=== PATIENT | female | born 1975 | race Caucasian/White ===

== ENCOUNTER 2017-04-17 23:00 | Emergency (ER) | payer MEDICAID, OTHER ==
[~2017-04-17 23:00] MED LIST: CLON1 PO; LITH300 PO; PROZ40CA PO; TOPA200T4 PO; VIMP200T PO
[2017-04-17 23:25] LABS: AUTOMATED NEUTROPHIL # 6.1 TH/MM3 (1.8-7.7); BASOPHIL # 0.1 TH/MM3 (0-0.2); BASOPHIL % 0.6 % (0.0-2.0); EOSINOPHIL # 0.1 TH/MM3 (0-0.4); HEMATOCRIT 36.6 % (35.0-46.0); HEMO FLAGS DIFF FINAL; LYMPHOCYTE # 3.2 TH/MM3 (1.0-4.8); MEAN CELL VOLUME 86.9 FL (80.0-100.0); MEAN CORPUSCULAR HEMOGLOBIN 28.6 PG (27.0-34.0); MEAN CORPUSCULAR HGB CONC 32.9 % (32.0-36.0); MONO % 6.1 % (0.0-8.0); NEUT % 60.3 % (16.0-70.0); PLATELET COUNT 285 TH/MM3 (150-450); RED BLOOD COUNT 4.21 MIL/MM3 (4.00-5.30); RED CELL DISTRIBUTION WIDTH 14.6 % (11.6-17.2); WHITE BLOOD COUNT 10.1 TH/MM3 (4.0-11.0)
[2017-04-17 23:39] LABS: ALT (GPT) 16 U/L (10-53); ANION GAP 6 MEQ/L (5-15); AST (GOT) 15 U/L (15-37); BICARBONATE 22.7 MEQ/L (21.0-32.0); BLOOD UREA NITROGEN 9 MG/DL (7-18); CHLORIDE 115 MEQ/L (98-107); GLOMERULAR FILTRATION RATE 90 ML/MIN (>89); POTASSIUM 3.7 MEQ/L (3.5-5.1); SODIUM (NA) 144 MEQ/L (136-145)
[2017-04-17 23:42] LABS: ALKALINE PHOSPHATASE 92 U/L (45-117); TOTAL BILIRUBIN ADULT LESS THAN 0.1 MG/DL (0.2-1.0)
--- NOTE | 2017-04-18 00:12 | PD ---
HPI Chief Complaint: Psychiatric Symptoms Time Seen by Provider: 00:01 Travel History International Travel<30 days: No Contact w/Intl Traveler<30days: No Traveled to known affect area: No History of Present Illness HPI 41-year-old female presents to emergency department under Andrade act by PD. The patient performed suicide gesture cutting to her left forearm. The patient states that she has a history of anxiety, depression, bipolar, migraines , and seizure disorder. She had gotten upset with her daughter earlier today. She also had gotten into a argument with a friend of hers. She had gone home and perform self belated cutting. The patient admits to feeling depressed and having suicidal thoughts. She denies any homicidal ideation. No toxic ingestions. She missed to drinking alcohol. She also smokes marijuana. Denies . Denies any acute medical complaints otherwise. No recent illness. PFSH Past Medical History Narrative Medical Anxiety, depression, bipolar, migraines, seizure disorder Bipolar Disorder: Yes Anxiety: Yes Depression: Yes Psychiatric: Yes Immunizations Current: Yes Tetanus Vaccination: < 5 Years Tubal Ligation: Yes Past Surgical History Narrative Surgical Tube ligation Social History Alcohol Use: Yes Tobacco Use: Yes Substance Use: Yes (marijuana) Allergies-Medications (Allergen,Severity, Reaction): Coded Allergies: Benadryl (Unverified Allergy, Mild, 04/29/16) Penicillin (Verified Allergy, Unknown, 04/29/16) Reported Meds & Prescriptions Reported Meds & Active Scripts Active Reported [place] Carbonate 300 Mg Tab 300 Mg PO DAILY Klonopin (Clonazepam) 1 Mg Tab 1 Mg PO TID Prozac (Fluoxetine HCl) 40 Mg Cap 40 Mg PO DAILY Topamax (Topiramate) 200 Mg Tab 200 Mg PO BID Vimpat (Lacosamide) 200 Mg Tab 200 Mg PO BID Review of Systems Except as stated in HPI: all other systems reviewed are Neg General / Constitutional: No: Fever, Chills Eyes: No: Diploplia, Blurred Vision HENT: No: Lightheadedness, Sore Throat Cardiovascular: No: Chest Pain or Discomfort, Tachycardia Respiratory: No: Cough, Shortness of Breath Gastrointestinal: No: Nausea, Vomiting Genitourinary: No: Dysuria, Hematuria Musculoskeletal: No: Myalgias, Arthralgias Skin: No Rash, No Lumps Neurologic: No: Focal Abnormalities, Paresthesia Psychiatric: Positive: Depression, Suicidal Ideations, Mood Disorder, Substance Abuse, No: Anxiety, Disorder of Thought, Homicidal Ideation Physical Exam Narrative GENERAL: Well-nourished, well-developed patient. SKIN: Warm and dry. Patient has superficial linear cut to the left forearm. This is nonsuturable. HEAD: Normocephalic and atraumatic. EYES: No scleral icterus. No injection or drainage. ENT: No nasal drainage noted. Mucous membranes pink. Airway patent. NECK: Supple, trachea midline. Moves head freely without obvious discomfort. CARDIOVASCULAR: Regular rate and rhythm without murmurs, gallops, or rubs. RESPIRATORY: Breath sounds equal bilaterally. No accessory muscle use. GASTROINTESTINAL: Abdomen soft, non-tender, nondistended. EXTREMITIES: No cyanosis or edema. BACK: Nontender without obvious deformity. No CVA tenderness. NEURO: Patient is alert and oriented. no sensorimotor deficits. Nonfocal. Normal speech. PSYCH: No delusions. No auditory or visual hallucinations. Data Data Orders Complete Blood Count With Diff (04/17/17 23:16) Comprehensive Metabolic Panel (04/17/17 23:16) Urinalysis - C+S If Indicated (04/17/17 23:16) Drug Screen, Random Urine (04/17/17 23:16) Ed Urine Pregnancytest Poc (04/17/17 23:38) Alcohol (Ethanol) (04/17/17 23:38) Salicylates (Aspirin) (04/17/17 23:38) Tylenol (Acetaminophen) (04/17/17 23:38) [place] (Li) (04/17/17 23:48) Labs Laboratory Tests Test 04/17/17 04/18/17 23:15 00:02 White Blood Count 10.1 TH/MM3 Red Blood Count 4.21 MIL/MM3 Hemoglobin 12.0 GM/DL Hematocrit 36.6 % Mean Corpuscular Volume 86.9 FL Mean Corpuscular Hemoglobin 28.6 PG Mean Corpuscular Hemoglobin 32.9 % Concent Red Cell Distribution Width 14.6 % Platelet Count 285 TH/MM3 Mean Platelet Volume 7.8 FL Neutrophils (%) (Auto) 60.3 % Lymphocytes (%) (Auto) 32.0 % Monocytes (%) (Auto) 6.1 % Eosinophils (%) (Auto) 1.0 % Basophils (%) (Auto) 0.6 % Neutrophils # (Auto) 6.1 TH/MM3 Lymphocytes # (Auto) 3.2 TH/MM3 Monocytes # (Auto) 0.6 TH/MM3 Eosinophils # (Auto) 0.1 TH/MM3 Basophils # (Auto) 0.1 TH/MM3 CBC Comment DIFF FINAL Differential Comment Sodium Level 144 MEQ/L Potassium Level 3.7 MEQ/L Chloride Level 115 MEQ/L Carbon Dioxide Level 22.7 MEQ/L Anion Gap 6 MEQ/L Blood Urea Nitrogen 9 MG/DL Creatinine 0.71 MG/DL Estimat Glomerular Filtration 90 ML/MIN Rate Random Glucose 90 MG/DL Calcium Level 8.0 MG/DL Total Bilirubin LESS THAN 0.1 MG/DL Aspartate Amino Transf 15 U/L (AST/SGOT) Alanine Aminotransferase 16 U/L (ALT/SGPT) Alkaline Phosphatase 92 U/L Total Protein 7.7 GM/DL Albumin 3.2 GM/DL Salicylates Level LESS THAN 1.7 MG/DL Acetaminophen Level LESS THAN 2.0 MCG/ML [place] Level 0.2 MEQ/L Ethyl Alcohol Level 104 MG/DL [facility] Medical Decision Making Medical Screen Exam Complete: Yes Emergency Medical Condition: Yes Medical Record Reviewed: Yes Interpretation(s) Laboratory Tests Test 04/17/17 04/18/17 23:15 00:02 White Blood Count 10.1 TH/MM3 Red Blood Count 4.21 MIL/MM3 Hemoglobin 12.0 GM/DL Hematocrit 36.6 % Mean Corpuscular Volume 86.9 FL Mean Corpuscular Hemoglobin 28.6 PG Mean Corpuscular Hemoglobin 32.9 % Concent Red Cell Distribution Width 14.6 % Platelet Count 285 TH/MM3 Mean Platelet Volume 7.8 FL Neutrophils (%) (Auto) 60.3 % Lymphocytes (%) (Auto) 32.0 % Monocytes (%) (Auto) 6.1 % Eosinophils (%) (Auto) 1.0 % Basophils (%) (Auto) 0.6 % Neutrophils # (Auto) 6.1 TH/MM3 Lymphocytes # (Auto) 3.2 TH/MM3 Monocytes # (Auto) 0.6 TH/MM3 Eosinophils # (Auto) 0.1 TH/MM3 Basophils # (Auto) 0.1 TH/MM3 CBC Comment DIFF FINAL Differential Comment Sodium Level 144 MEQ/L Potassium Level 3.7 MEQ/L Chloride Level 115 MEQ/L Carbon Dioxide Level 22.7 MEQ/L Anion Gap 6 MEQ/L Blood Urea Nitrogen 9 MG/DL Creatinine 0.71 MG/DL Estimat Glomerular Filtration 90 ML/MIN Rate Random Glucose 90 MG/DL Calcium Level 8.0 MG/DL Total Bilirubin LESS THAN 0.1 MG/DL Aspartate Amino Transf 15 U/L (AST/SGOT) Alanine Aminotransferase 16 U/L (ALT/SGPT) Alkaline Phosphatase 92 U/L Total Protein 7.7 GM/DL Albumin 3.2 GM/DL Salicylates Level LESS THAN 1.7 MG/DL Acetaminophen Level LESS THAN 2.0 MCG/ML [place] Level 0.2 MEQ/L Ethyl Alcohol Level 104 MG/DL Differential Diagnosis MDM: High Differential diagnoses: Schizophrenia, schizoaffective disorder, bipolar, anxiety, depression, adjustment reaction, mood disorder NOS, ODD, depressive disorder NOS, dementia, dementia with agitation, psychosis NOS, substance induced mood disorder, intermittent explosive disorder, Asperger syndrome, infection,electrolyte abnormality, malingering. Narrative Course Mental health screening discussed with the patient. Psychiatric screen ordered. The patient been medically cleared. This is medical clearance exam for psychiatric admission, bipolar, self mutilation, alcohol intoxication Diagnosis Primary Impression: Medical clearance for psychiatric admission Additional Impressions: bipolar Self-mutilation alcohol intoxication Condition: Stable Tariq Goldstein Apr 18, 2017 00:12
[2017-04-18 00:47] LABS: ACETAMINOPHEN LESS THAN 2.0 MCG/ML (10.0-30.0)
[2017-04-18 00:53] LABS: BLOOD, URINE NEG (NEG); COMMENT (UR) CULT NOT INDICATED; CULTURE IF INDICATED CULT NOT INDICATED; GLUCOSE,URINE NEG (NEG); KETONE, URINE NEG (NEG); NITRITE,URINE NEG (NEG); PH, URINE 5.5 (5.0-8.5); SQUAMOUS EPITHELIAL CELL URINE 2 /hpf (0-5); URINE COLOR LIGHT-YELLOW (YELLW/STRAW)
[2017-04-18 00:55] LABS: AMPHETAMINE, URINE NEG (NEG); BARBITURATES, URINE POS (NEG); COCAINE, URINE NEG (NEG)
[2017-04-18] MEDS ORDERED: LITH300T3 PO (01:05)
[2017-04-18] MEDS ORDERED: CLON1 PO (01:05)
[2017-04-18] MEDS ORDERED: VIMP200T PO (01:05)
[2017-04-18] MEDS ORDERED: TOPI200 PO (01:05)
[2017-04-18] MEDS ORDERED: KEPP10002 PO (01:05)
[2017-04-18 01:08] VITALS: BP 116/64; PULSE 84; RESP 18; TEMP 98.4; O2SAT 96
[2017-04-18] MEDS ORDERED: LACOSAMIDE 100 MG TAB PO ONE (03:30)
[2017-04-18] MEDS ORDERED: levETIRAcetam 500 MG TAB PO ONE (03:30)
[2017-04-18] MEDS ORDERED: LITHIUM CARBONATE 300 MG TAB PO ONE (03:30)
[2017-04-18] MEDS ORDERED: TOPIRAMATE 100 MG TAB PO ONE (03:30)
[2017-04-18 07:31] VITALS: BP 158/79; PULSE 69; RESP 18; O2SAT 100
--- NOTE | 2017-04-18 10:24 | PD ---
History of Present Illness Chief Complaint: Psychiatric Symptoms Time Seen by Provider: 10:05 Travel History International Travel<30 Days: No Contact w/Intl Traveler<30days: No Known affected area: No Legal Status Legal Status: Andrade Act Andrade Act Signed By: Lito Avitia History of Present Illness: History of Present Illness HPI 41-year-old female with hx of bipolar disorder as well as alcohol use disorder who presents to emergency department under Andrade act initiated by PD. The report states that the patient's daughter called the police when she noticed superficial lacerations on her mother's arms. The patient told the police that she cut herself because no one loves her. The report also alleges that she stated that she was thinking of killing herself. The patient did cut her left arm superficially The patient states that she has a history of anxiety, depression, bipolar, migraines, and seizure disorder. The patient was monitored in [facility] and she presented no suicidality. EMR is reviewed. One previous contact with [facility] in 2016 having made suicidal statements while intoxicated. BAL on presentation is 104. Positive toxicology for cannabinoids as well as opiates. Patient this morning is alert, oriented and clinically sober. She does not present any psychosis or geeta. Denies suicidal ideation and states that she cut herself because she was mad. She denies any suicidal ideation, intent or plan. she tells me that she is medication compliant. She confirms information she has provided to other staff that she had been drinking as well as that she had an argument with her daughter which prompted her SIB. She denies that she drinks every day. . PFSH Past Medical History Bipolar Disorder: Yes Anxiety: Yes Depression: Yes Diabetes: No Patient Takes Glucophage: No Psychiatric: Yes Immunizations Current: Yes Seizures: Yes (GRAND MAL, LAST SEIZURE A YEAR AGO PER PATIENT) Tetanus Vaccination: < 5 Years ?: Not Tubal Ligation: Yes Psychiatric History Psychiatric History Hx Psychiatric Treatment: PATIENT STATED THAT SHE IS DIAGNOSED WITH BIPOLAR, ANXIETY AND DEPRESSION Receives outpatietn care at [facility] . History of Inpatient Treatment: Yes Guns or firearms in home: No Social History Single female. Lives in her home along with her daughter and son. On disability Hx Alcohol Use: Yes Hx Tobacco Use: Yes Hx Substance Use: Yes (ALCOHOL, MARIJUANA) Substance Use Type: Alcohol, Marijuana Hx of Substance Use Treatment: No Family Psychiatric History Negative Allergies-Medications (Allergen,Severity, Reaction): Coded Allergies: Benadryl (Unverified Allergy, Mild, 04/18/17) Penicillin (Verified Allergy, Unknown, 04/18/17) Reported Meds & Prescriptions Reported Meds & Active Scripts Active Reported [place] Carbonate 300 Mg Tab 300 Mg PO DIRECTED Klonopin (Clonazepam) 1 Mg Tab 1 Mg PO BID Keppra (Levetiracetam) 1,000 Mg Tab 1,000 Mg PO BID Topamax (Topiramate) 200 Mg Tab 200 Mg PO BID Vimpat (Lacosamide) 200 Mg Tab 200 Mg PO HS Review of Systems Except as stated in HPI: all other systems reviewed are Neg Exam Alert: Yes [place]: Person (ox4) Mood: Calm Affect: Appropriate Speech: Clear, Logical Eye Contact: Normal Memory Intact: Comment (No impairment) Hallucinations: Other (negative) Delusions: No Suicidal: Ideation (deneis any) Homicidal: Ideation (denies any) Insight/Judgement Poor. not impaired. MDM Medical Decision Making Medical Record Reviewed: Yes Assessment/Plan 41 year old female under a BA after she superficially cut her forearm in context of alcohol intoxication as well as having an argument with her daughter. At this time the patient is clinically sober and denies any suicidal or homicidal ideation, intent or plan. She does not meet BA criteria. I have counseled her regarding use of alcohol and other substances while she uses medications. She will follow up with [facility] . Lift BA and discharge. Orders Complete Blood Count With Diff (04/17/17 23:16) Comprehensive Metabolic Panel (04/17/17 23:16) Urinalysis - C+S If Indicated (04/17/17 23:16) Drug Screen, Random Urine (04/17/17 23:16) Ed Urine Pregnancytest Poc (04/17/17 23:38) Alcohol (Ethanol) (04/17/17 23:38) Salicylates (Aspirin) (04/17/17 23:38) Tylenol (Acetaminophen) (04/17/17 23:38) [place] (Li) (04/17/17 23:48) Psych Screen (04/18/17 01:35) Lacosamide (Vimpat) (04/18/17 03:30) Topiramate (Topamax) (04/18/17 03:30) Levetiracetam (Keppra) (04/18/17 03:30) [place] Carbonate (Lithotabs) (04/18/17 03:30) Diet Regular Basic (04/18/17 Breakfast) Results Vital Signs Date Time Temp Pulse Resp B/P Pulse Ox O2 Delivery O2 Flow Rate FiO2 04/18/17 07:31 69 18 158/79 100 Room Air 04/18/17 01:08 98.4 84 18 116/64 96 Laboratory Tests Test 04/17/17 04/18/17 04/18/17 23:15 00:02 00:35 White Blood Count 10.1 Red Blood Count 4.21 Hemoglobin 12.0 Hematocrit 36.6 Mean Corpuscular Volume 86.9 Mean Corpuscular Hemoglobin 28.6 Mean Corpuscular Hemoglobin 32.9 Concent Red Cell Distribution Width 14.6 Platelet Count 285 Mean Platelet Volume 7.8 Neutrophils (%) (Auto) 60.3 Lymphocytes (%) (Auto) 32.0 Monocytes (%) (Auto) 6.1 Eosinophils (%) (Auto) 1.0 Basophils (%) (Auto) 0.6 Neutrophils # (Auto) 6.1 Lymphocytes # (Auto) 3.2 Monocytes # (Auto) 0.6 Eosinophils # (Auto) 0.1 Basophils # (Auto) 0.1 CBC Comment DIFF FINAL Differential Comment Sodium Level 144 Potassium Level 3.7 Chloride Level 115 Carbon Dioxide Level 22.7 Anion Gap 6 Blood Urea Nitrogen 9 Creatinine 0.71 Estimat Glomerular Filtration 90 Rate Random Glucose 90 Calcium Level 8.0 Total Bilirubin LESS THAN 0.1 Aspartate Amino Transf 15 (AST/SGOT) Alanine Aminotransferase 16 (ALT/SGPT) Alkaline Phosphatase 92 Total Protein 7.7 Albumin 3.2 Salicylates Level LESS THAN 1.7 Acetaminophen Level LESS THAN 2.0 [place] Level 0.2 Ethyl Alcohol Level 104 Urine Color LIGHT-YELLOW Urine Turbidity CLEAR Urine pH 5.5 Urine Specific [place] 1.011 Urine Protein NEG Urine Glucose (UA) NEG Urine Ketones NEG Urine Occult Blood NEG Urine Nitrite NEG Urine Bilirubin NEG Urine Urobilinogen LESS THAN 2.0 Urine Leukocyte Esterase NEG Urine RBC LESS THAN 1 Urine WBC 1 Urine Squamous Epithelial 2 Cells Microscopic Urinalysis Comment CULT NOT INDICATED Urine Opiates Screen NEG Urine Barbiturates Screen POS Urine Amphetamines Screen NEG Urine Benzodiazepines Screen NEG Urine Cocaine Screen NEG Urine Cannabinoids Screen POS Diagnosis Primary Impression: alcohol intoxication Additional Impression: Alcohol-induced mood disorder Psychiatrically Cleared: Yes Med/ Other Pt Specific Info: No Change to Meds Disposition: 01 DISCHARGE HOME Condition: Stable Problem Qualifiers Mary Sebastian [facility] Apr 18, 2017 10:24
[2017-04-18 10:34] VITALS: BP 148/76; TEMP 98.1
[2017-04-18] MEDS ORDERED: clonazePAM 1 MG TAB PO ONE (10:45)
== END 2017-04-18 10:49 | disposition home or self-care (01) ==
LOC: NEPD 23:00 → NEPJ 04-18 10:49
DX: F10.129 Alcohol abuse with intoxication, unspecified (principal); F39 Unspecified mood [affective] disorder; F31.9 Bipolar disorder, unspecified; F41.9 Anxiety disorder, unspecified; F32.9 Major depressive disorder, single episode, unspecified; Z72.0 Tobacco use; Z88.0 Allergy status to penicillin; Z88.6 Allergy status to analgesic agent; Z79.899 Other long term (current) drug therapy
CPT/HCPCS: 80053; 80178; 80307; 81001; 84703; 85025; 99284